=== PATIENT | male | born 2000 | race Two or more races ===

== ENCOUNTER 2020-02-13 16:51 | Emergency (ER) | payer SELFPAY ==
[~2020-02-13] VITALS: Ht 177.8 cm; Wt 84.0 kg
[2020-02-13] MEDS ORDERED: IV NORMAL SALINE 1000ML BAG 1,000 ML IV ONE (17:30)
[2020-02-13] MEDS ORDERED: ONDANSETRON PF 4 MG/2 ML VIAL. IVP ONE (17:30)
[2020-02-13] MEDS ORDERED: KETOROLAC 30 MG/ML VIAL. IVP ONE (17:30)
[2020-02-13 17:33] LABS: BILIRUBIN,URINE SMALL (NEG); CLARITY,URINE CLOUDY; COLOR,URINE AMBER; NITRITE,URINE NEGATIVE (NEG); PH,URINE 6.5 (<5.0-8.0); PROTEIN,URINE NEGATIVE (NEG-TRACE)
--- NOTE | 2020-02-13 17:33 | PHYS DOC ---
General Adult EDM: Chief Complaint: NAUSEA/VOMITING/DIARRHA HPI: HPI: Patient is a 19 year old male patient presents with abdominal pain starting at 12 clock today. Patient states he had a sudden onset of abdominal pain, feels a sharp pain, starting from 12:00 today. States he has never had this discomfort before, started after lifting a piece of drywall. States he had one episode of vomiting before this, without any nausea. States he has not taken nothing for the discomfort, however he does report he has had some decreased urine for the last few days and has noticed it to be a little darker color than usual. States he has been eating normally, denies fever, last bowel movement yesterday. Denies any blood in his stool or other change in his stool, does report he had an episode of diarrhea yesterday Review of Systems: Review of Systems: Constitutional: Denies fever or chills. [] Respiratory: Denies cough or shortness of breath. [] Cardiovascular: Denies chest pain or edema. [] GI: Reports abdominal pain, one episode of vomiting. Denies any nausea, denies any bloody stools, states he has one episode of diarrhea yesterday : Denies dysuria. Denies hematuria [] Musculoskeletal: Denies back pain or joint pain. [] Integument: Denies rash. [] Neurologic: Denies headache, focal weakness or sensory changes. [] Endocrine: Denies polyuria or polydipsia. [] Lymphatic: Denies swollen glands. [] Psychiatric: Denies depression or anxiety. [] Heart Score: Risk Factors: Risk Factors: DM, Current or recent (<one month) smoker, HTN, HLP, family history of CAD, obesity. Risk Scores: Score 0 - 3: 2.5% MACE over next 6 weeks - Discharge Home Score 4 - 6: 20.3% MACE over next 6 weeks - Admit for Clinical Observation Score 7 - 10: 72.7% MACE over next 6 weeks - Early Invasive Strategies Physical Exam: PE: Constitutional: Well developed, well nourished, no acute distress, non-toxic appearance. [] HENT: Normocephalic, atraumatic, bilateral external ears normal, oropharynx moist, no oral exudates, nose normal. [] Eyes: PERRLA, EOMI, conjunctiva normal, no discharge. [] Neck: Normal range of motion, no tenderness, supple, no stridor. [] Cardiovascular:Heart rate regular rhythm, no murmur [] Lungs & Thorax: Bilateral breath sounds clear to auscultation [] Abdomen: Bowel sounds normal, soft, upper abdomen tenderness, no masses, no pulsatile masses. On flexion of the abdomen muscles, no abnormalities palpated, minimal discomfort [] Skin: Warm, dry, no erythema, no rash. [] Back: No tenderness, no CVA tenderness. [] Extremities: No tenderness, no cyanosis, no clubbing, ROM intact, no edema. [] Neurologic: Alert and oriented X 3, normal motor function, normal sensory function, no focal deficits noted. [] Psychologic: Affect normal, judgement normal, mood normal. [] EKG: EKG: [] Radiology/Procedures: Radiology/Procedures: []HISTORY: Abdominal pain Supine AP view lower abdomen pelvis 5:30 PM There is air scattered throughout portions the colon. There is a paucity of small bowel gas. There is no obvious free air. There is no abnormal calcifications. IMPRESSION: No acute findings. Electronically signed by: Vimal Enriquez III, MD (02/13/2020 6:04 PM) [facility] Course & Med Decision Making: Course & Med Decision Making Pertinent Labs and Imaging studies reviewed. (See chart for details) [] Patient states he does feel a bit better after fluids and nausea medication. Also reports that he has been feeling a bit of malaise for the last 5 days, unable to eat and drink much because he has felt some nausea. Will provide prescription for antiemetics, recommend hydration, follow-up with primary care. Patient agreed with this plan Dragon Disclaimer: Michaela Disclaimer: This electronic medical record was generated, in whole or in part, using a voice recognition dictation system. Departure Departure Impression: Primary Impression: Nausea and vomiting Qualified Codes: R11.2 - Nausea with vomiting, unspecified Additional Impression: Malaise Disposition: 01 HOME, SELF-CARE Condition: GOOD Referrals: NO PCP (PCP) Patient Instructions: Nausea, Adult Additional Instructions: As we discussed, make sure you are drinking plenty fluids, trying to eat smaller bits at a time. If you have not been eating very well for several days, you can definitely feel kind of weak and uncomfortable. Try to eat a basic diet over the next 2 days. Take the nausea medication as prescribed if you need it. If you continue to have discomfort, follow-up with your primary care provider Scripts Ondansetron (ONDANSETRON ODT) 4 Mg Tab.rapdis 1 TAB PO PRN Q6-8HRS, #16 TAB Prov: BERNARD ATKINSON APRN 02/13/20 Justicifation of Admission Dx: Justifications for Admission: Justification of Admission Dx: N/A BERNARD ATKINSON APRN Feb 13, 2020 17:33
[2020-02-13 17:38] LABS: SQUAMOUS EPITHELIAL CELL,UR MOD /LPF
[2020-02-13 17:39] LABS: HYALINE CASTS, URINE FEW /HPF
[2020-02-13 17:40] LABS: AMORPHOUS SEDIMENT,UR PRESENT /HPF; BACTERIA,URINE 0 /HPF (0-FEW); WBC,URINE OCC /HPF (0-4)
[2020-02-13 18:04] LABS: BASO # 0.1 x10^3/uL (0.0-0.2); BASO % 1 % (0-3); EOS # 0.3 x10^3/uL (0.0-0.7); EOS % 8 % (0-3); HEMATOCRIT 37.3 % (39.0-53.0); HEMOGLOBIN 12.9 g/dL (13.0-17.5); LYMPH # 1.2 x10^3/uL (1.0-4.8); LYMPH % 27 % (24-48); MEAN CORPUSCULAR HEMOGLOBIN 30 pg (25-35); MEAN CORPUSCULAR HGB CONC 35 g/dL (31-37); MEAN CORPUSCULAR VOLUME 88 fL (79-100); MONO # 0.6 x10^3/uL (0.0-1.1); MONO % 13 % (0-9); NEUT # 2.2 x10^3/uL (1.8-7.7); NEUT % 51 % (31-73); PLATELET COUNT 252 x10^3/uL (140-400); RED BLOOD COUNT 4.24 x10^6/uL (4.30-5.70); RED CELL DISTRIBUTION WIDTH 12.4 % (11.5-14.5); WHITE BLOOD COUNT 4.3 x10^3/uL (4.0-11.0)
--- NOTE | 2020-02-13 18:07 | RAD ---
One view lower abdomen and pelvis KUB HISTORY: Abdominal pain Supine AP view lower abdomen pelvis 5:30 PM There is air scattered throughout portions the colon. There is a paucity of small bowel gas. There is no obvious free air. There is no abnormal calcifications. IMPRESSION: No acute findings. Electronically signed by: Vimal Enriquez III, MD (02/13/2020 6:04 PM) [facility]
[2020-02-13 18:17] LABS: CALCIUM 8.7 mg/dL (8.5-10.1); CREATININE 1.4 mg/dL (0.7-1.3); POTASSIUM 3.7 mmol/L (3.5-5.1)
[2020-02-13 18:24] LABS: ALBUMIN/GLOBULIN RATIO 1.3 (1.0-1.7); TOTAL BILIRUBIN 0.3 mg/dL (0.2-1.0); TOTAL PROTEIN 7.1 g/dL (6.4-8.2)
[2020-02-13 19:00] VITALS: BP 141/73
[2020-02-13] MEDS ORDERED: ONDA4TAB12 PO (19:09)
== END 2020-02-13 19:20 | disposition home or self-care (01) ==
LOC: ER 16:51
DX: R11.2 Nausea with vomiting, unspecified (principal); R53.81 Other malaise; R10.10 Upper abdominal pain, unspecified; R19.7 Diarrhea, unspecified
CPT/HCPCS: 36415; 74018; 80053; 81001; 83690; 85025; 96361; 96374; 96375; 99285; J1885; J2405; J7030